=== PATIENT | female | born 1955 | race Two or more races ===

== ENCOUNTER 2021-02-04 13:42 | Outpatient (CLI) | payer OTHER | END 2021-02-04 13:46 | disposition home or self-care (01) | LOC: NUCLEAR 13:42 | PROVIDERS: ATTEND Specialist | DX: M81.0 Age-related osteoporosis without current pathological fracture (principal) ==

== ENCOUNTER 2022-01-17 02:05 | Emergency (ER) | payer OTHER ==
[~2022-01-17] VITALS: Ht 154.9 cm; Wt 50.8 kg
[2022-01-17] MEDS ORDERED: LEVOTHYROXINE25 MCG (02:18)
[2022-01-17] MEDS ORDERED: TAMOXIFEN CITRA10 MG (02:18)
[2022-01-17] MEDS ORDERED: PEPCID AC20 MG PO (03:54)
== END 2022-01-17 04:01 | disposition home or self-care (01) ==
LOC: ER 02:05
DX: K29.70 Gastritis, unspecified, without bleeding (principal); Z85.9 Personal history of malignant neoplasm, unspecified

== ENCOUNTER 2022-07-08 10:57 | Emergency (ER) | payer OTHER ==
[~2022-07-08] VITALS: Ht 152.4 cm; Wt 47.2 kg
[~2022-07-08 10:57] MED LIST: LEVOTHYROXINE25 MCG; PEPCID AC20 MG PO; TAMOXIFEN CITRA10 MG PO
[2022-07-08] MEDS ORDERED: LANSOPRAZOLE30 MG PO (11:07)
[2022-07-08] MEDS ORDERED: HYDROXYCHLOROQ200 MG PO (11:08)
== END 2022-07-08 13:15 | disposition home or self-care (01) ==
LOC: ER 10:57
DX: S90.121A Contusion of right lesser toe(s) without damage to nail, initial encounter (principal); W22.8XXA Striking against or struck by other objects, initial encounter; Y93.89 Activity, other specified; Y92.9 Unspecified place or not applicable; Z85.3 Personal history of malignant neoplasm of breast; M32.8 Other forms of systemic lupus erythematosus; E03.9 Hypothyroidism, unspecified

== ENCOUNTER 2023-02-09 13:43 | Outpatient (CLI) | payer OTHER ==
[~2023-02-09 13:43] MED LIST changes: +HYDROXYCHLOROQ200 MG PO; +LANSOPRAZOLE30 MG PO
== END 2023-02-09 13:45 | disposition home or self-care (01) ==
LOC: NUCLEAR 13:43
PROVIDERS: ATTEND Specialist
DX: M81.0 Age-related osteoporosis without current pathological fracture (principal)

== ENCOUNTER 2023-11-14 10:09 | Outpatient (CLI) | payer OTHER | END 2023-11-14 10:15 | disposition home or self-care (01) | LOC: RAD 10:09 | PROVIDERS: ATTEND Internal Medicine | DX: S92.311A Displaced fracture of first metatarsal bone, right foot, initial encounter for closed fracture (principal) ==

== ENCOUNTER 2025-03-21 10:31 | Outpatient (CLI) | payer OTHER | END 2025-03-21 10:32 | disposition home or self-care (01) | LOC: NUCLEAR 10:31 | PROVIDERS: ATTEND Specialist | DX: M81.0 Age-related osteoporosis without current pathological fracture (principal) ==